=== PATIENT | female | born 1940 | race Caucasian/White ===

== ENCOUNTER → 2017-07-05 | Outpatient (CLI) | payer OTHER, SELFPAY ==
[~2017-07-05] MED LIST: ADULT LOW DOSE81 MG; ADULT LOW DOSE81 MG PO; ADVAIR; ALPRAZOLAM 0.50.5 MG; ALPRAZOLAM 0.50.5 MG PO; AMLODIPINE BESY10 MG PO; ASPIRIN325; ATIVAN0.5 MG PO; BAYER CHEWABLE81 MG PO; CEFUROXIME500 MG PO; CIPROFLOXACIN500 M1 PO; CLARITIN10 MG; CLARITIN10 MG PO; COLACE 100 MG100 MG; COLACE100 MG PO; FERRO-TIME325 MG; FERROUS SULFAT325 MG PO; FISH OIL 1,0001 EAC8 PO; FISHOIL; FISHOIL PO; HYDROCHLOROTHIA25 M1; HYDROCHLOROTHIA25 M1 PO; HYDROCHLOROTHIA25 M2 PO; HYDROCODON-ACE1 EAC8 PO; IRON325 MG PO; LOVENOX; METAMUCIL WAFER1 PKT PO; MIRALAX255 GM; MOM PO; NEXIUM40 MG; NEXIUM40 MG PO; NORCO 5-325 TA1 EACH PO; PREDNISONE 10 M10 MG PO; PREDNISONE50 MG PO; PROAIR HFA8.5 GM; PROZAC; PROZAC 20 MG20 M1 PO; PROZAC 20 MG20 MG PO; ROXICODONE5 M1; SIMVASTATIN40 MG PO; SINGULAIR 10 MG10 M1 PO; SYNTHROID100 MCG; SYNTHROID100 MCG PO; VICODIN 5-5001 EACH; VITAMIN D-32000 UNIT PO; VITAMIN D1000 UNI1 PO; VOLTAREN GEL 1100 G1; XANAX 0.5 MG0.5 M1 PO; XANAX 0.5 MG0.5 MG PO; XOPENEX HFA15 GM INH; ZANTAC 150MG T150 M1 PO; ZOCOR40 MG; ZOCOR40 MG PO; ZOFRAN ODT4 MG PO; ZYRTEC10 M1; ZYRTEC10 MG PO
== END ==
LOC: M.RAD 12:09
DX: M51.37 Other intervertebral disc degeneration, lumbosacral region (principal); M47.896 Other spondylosis, lumbar region; M47.894 Other spondylosis, thoracic region; M16.11 Unilateral primary osteoarthritis, right hip; Z98.890 Other specified postprocedural states

== ENCOUNTER → 2018-07-09 | Outpatient (CLI) | payer OTHER | LOC: M.RAD 14:58 | DX: J98.4 Other disorders of lung (principal); G89.29 Other chronic pain ==

== ENCOUNTER 2020-08-19 09:18 | Observation (INO) | payer OTHER ==
[~2020-08-19] VITALS: Ht 165.1 cm; Wt 106.4 kg
[2020-08-19 09:25] VITALS: BP 193/70
[2020-08-19 10:23] LABS: ABSOLUTE BASOPHILS 0.1 thou/uL (0.0-0.2); ABSOLUTE EOSINOPHILS 0.2 thou/uL (0.0-0.7); ABSOLUTE LYMPHOCYTES 1.8 thou/uL (0.8-5.3); ABSOLUTE MONOCYTES 0.6 thou/uL (0.0-1.2); ABSOLUTE NEUTROPHILS 5.1 thou/uL (1.6-8.1); BASOPHILS 1.1 %; EOSINOPHILS 2.9 %; HEMATOCRIT 31.2 % (37.0-47.0); HEMOGLOBIN 10.2 gm/dL (12.0-15.0); LYMPHOCYTES 22.8 %; MCH 26.6 pg (26.0-34.0); MCHC 32.6 g/dL (28.0-37.0); MCV 81.6 fL (80.0-100.0); MONOCYTES 7.4 %; MPV 6.6 fl. (7.2-11.1); NUCLEATED RBCS 0 /100WBC; PLATELET COUNT* 270 thou/uL (150-400); POLYS 65.8 %; RBC 3.82 mil/uL (4.20-5.00); RDW-CV 14.7 % (10.5-14.5); WBC 7.7 thou/uL (4.0-11.0)
[2020-08-19 10:38] LABS: APTT 26.5 Seconds (25.0-31.3); PROTIME 10.6 Seconds (9.20-11.50)
[2020-08-19 10:41] LABS: ALBUMIN 3.8 g/dL (3.4-5.0); CALCIUM 9.7 mg/dL (8.5-10.1); CREATININE 0.9 mg/dL (0.6-1.3); MAGNESIUM 1.8 mg/dL (1.8-2.4); POTASSIUM 3.9 mmol/L (3.5-5.1); TOTAL BILIRUBIN 0.3 mg/dL (<0.1-1.0); TOTAL PROTEIN 7.6 g/dL (6.4-8.2)
--- NOTE | 2020-08-19 14:21 | EKG ---
[place] [address] ELECTROCARDIOGRAM REPORT Name: JENNIFER YUAN Room: [address] M.R.#: [id number] Admission: 08/19/20 Attend Phys: Vicente Rayo Discharge: Date of : 36 Date of Service: 08/19/20 1022 Report #: [id number] THIS REPORT FOR: //name// [facility] ED Test Date: 2020-08-19 Test Time: 10:22:08 Pat Name: JENNIFER YUAN Department: Room: [facility] Gender: F Hiv Cts Specialist: ABRAHAM : 1940 Requested By: Jason Corbett Order Number: [id number] MD: Contreras Peerz Measurements Intervals [place] Rate: 83 P: 65 NM: 174 QRS: -43 QRSD: 136 T: 99 QT: 407 QTc: 479 Interpretive Statements Sinus rhythm LVH with IVCD, LAD and secondary repol abnrm left axis late transition Compared to ECG 10/14/2016 17:47:45 Sinus tachycardia no longer present Electronically Signed On 08-19-2020 14:21:20 CDT by Contreras Perez [email or web address] <ELECTRONICALLY SIGNED> By: Contreras Perez MD, FAC 08/19/20 1421 1022 1022 Contreras Perez MD, FAC /EPI
[2020-08-19 14:28] VITALS: BP 179/56
[2020-08-19 14:50] VITALS: BP 160/72
--- NOTE | 2020-08-19 16:34 | 2DMMODE ---
[place] [address] 2 D/M-MODE ECHOCARDIOGRAM Name: YUANJENNIFER J Room: [address] [place]#: [id number] Admission: 08/19/20 Attend Phys: Vicente Rayo Discharge: Date of : 36 Date of Service: 08/19/20 1633 Report #: [id number] THIS REPORT FOR: cc: Katie Bowie MD, Jayne Lora MD Blick, David R. MD [facility] ~ APPROVED REPORT Study performed: 08/19/2020 15:49:08 EXAM: Comprehensive 2D, Doppler, and color-flow Echocardiogram Patient Location: In-Patient Room #: [facility] Status: routine BSA: 2.10 HR: 80 bpm BP: 160/72 mmHg Rhythm: NSR Other Information Study Quality: Good Indications Murmur Chest Pain 2D Dimensions IVSd: 13.97 (7-11mm) LVOT Diam: 19.81 (18-24mm) LVDd: 53.07 mm PWd: 10.88 (7-11mm) Ascending Ao: 28.46 (22-36mm) LVDs: 33.39 (25-40mm) Aortic Root: 28.97 mm Volumes Left Atrial Volume (Systole) LA ESV Index: 20.70 mL/m2 Aortic Valve AoV Peak Jean Paul.: 1.91 m/s AO Peak Gr.: 14.63 mmHg LVOT Max P.00 mmHg AO Mean Gr.: 8.32 mmHg LVOT Mean P.12 mmHg LVOT Max V: 1.00 m/s AO V2 VTI: 42.04 cm LVOT Mean V: 0.67 m/s STEVIE (VTI): 1.74 cm2 LVOT V1 VTI: 23.74 [place] [address] 2 D/M-MODE ECHOCARDIOGRAM Name: JENNIFER YUAN Room: [address] Mariah#: [id number] Admission: 08/19/20 Attend Phys: Vicente Rayo Discharge: Date of : 36 Date of Service: 08/19/20 1633 Report #: [id number] [place]: 3.65 m/s2 AI PHT: 358.83 ms Mitral Valve E/A Ratio: 0.66 MV Decel. Time: 254.85 ms MV E Max Jean Paul.: 0.81 m/s MV PHT: 73.91 ms MVA (PHT): 2.98 cm2 TDI E/Lateral E': 9.00 E/Medial E': 8.10 Medial E' Jean Paul.: 0.10 m/s Lateral E' Jean Paul.: 0.09 m/s Pulmonary Valve PV Peak Jean Paul.: 1.15 m/s PV Peak Gr.: 5.25 mmHg Tricuspid Valve RAP Estimate: 5.00 mmHg TR Peak Gr.: 23.43 mmHg RVSP: 28.00 mmHg PA Pressure: 28.00 mmHg Left Ventricle The left ventricle is normal size. There is normal LV segmental wall motion. There is normal left ventricular wall thickness. Left ventricular systolic function is normal. The left ventricular ejection fraction is within the normal range. LVEF is 55-60%. Grade I - abnormal relaxation pattern. Right Ventricle The right ventricle is normal size. The right ventricular systolic function is normal. Atria The left atrium size is normal. The right atrium size is normal. Aortic Valve Aortic valve is calcified. Mild aortic regurgitation. Mild aortic stenosis. Mitral Valve The mitral valve is normal in structure. Trace mitral regurgitation. No evidence [place] [address] 2 D/M-MODE ECHOCARDIOGRAM Name: VENKATESH YUANALEXANDRA [place] Room: [address]#: [id number] Admission: 08/19/20 Attend Phys: Vicente Rayo Discharge: Date of : 36 Date of Service: 08/19/20 1633 Report #: [id number] Tricuspid Valve The tricuspid valve is normal in structure. Trace tricuspid regurgitation. No pulmonary hypertension. Pulmonic Valve The pulmonary valve is normal in structure. There is no pulmonic valvular regurgitation. Great Vessels The aortic root is normal in size. IVC is normal in size and collapses >50% with inspiration. Pericardium There is no pericardial effusion. <Conclusion> LVEF is 55-60%. Mild aortic regurgitation. Mild aortic stenosis. <ELECTRONICALLY SIGNED> By: Contreras Perez MD, FACC 08/19/20 1633 1633 1633 Contreras Perez MD, FACC /INF
[2020-08-19 19:30] VITALS: BP 151/54
[2020-08-19 23:39] VITALS: BP 134/48
[2020-08-20 03:54] VITALS: BP 127/54
[2020-08-20 04:51] LABS: CHOLESTEROL 126 mg/dL (<200); HDL CHOLESTEROL 62 mg/dL (>40); LDL CHOLESTEROL 23 mg/dL (<100); TRIGLYCERIDE 208 mg/dL (<150); VLDL 42 mg/dL (<40)
[2020-08-20 05:03] LABS: SERUM ASSESSMENT CLEAR
[2020-08-20 08:15] LABS: CALCIUM 9.6 mg/dL (8.5-10.1); CREATININE 0.9 mg/dL (0.6-1.3); POTASSIUM 4.1 mmol/L (3.5-5.1)
[2020-08-20 08:18] LABS: MAGNESIUM 2.1 mg/dL (1.8-2.4); PHOSPHORUS* 3.8 mg/dL (2.5-4.9)
[2020-08-20 08:19] VITALS: BP 141/58
[2020-08-20] MEDS ORDERED: PREDNISONE 10 M10 MG PO (08:28)
[2020-08-20] MEDS ORDERED: CEFDINIR300 MG PO (08:28)
--- NOTE | 2020-08-20 10:54 | CON ---
[address] [address] CONSULTATION Name: WILL YUANN [place] Room: [address] [place]#: [id number] Admission: 08/19/20 Attend Phys: Ronaldo Mitchell Discharge: Date of : 36 Report #: [id number] THIS REPORT FOR: cc: Katie Bowie MD, Jayne Lora MD Blick,Contreras Hamilton MD [facility] ~ DATE OF SERVICE: 08/19/2020 CARDIOLOGY CONSULTATION HISTORY OF PRESENT ILLNESS: The patient is an 79-year-old single white female who I was asked to see in the hospital today after she complained of being short of breath. The patient has no previous history of heart disease. However, for the past several weeks, she has had increasing dyspnea on exertion. She has had a cough, but denies any fever. She has occasional ankle edema. She does have occasional chest pressure, although it is nonexertional. There is no radiation of the pain. She notes occasional episodes where heart rate will increase, but she has had no syncope. She came to the hospital today and was admitted for further evaluation and treatment. Apparently, she had a stress test years ago. PAST MEDICAL HISTORY: She has had a previous back surgery, knee surgery, history of breast cancer. She has had cholecystectomy, shoulder surgery, hypertension, diabetes, and hyperlipidemia. MEDICATIONS: On admission, the patient takes hydrochlorothiazide, Zocor, Synthroid, amlodipine, Nexium, hydrocodone, Prozac, aspirin, Xanax, Xopenex inhaler, Singulair inhaler. ALLERGIES: SHE HAS PREVIOUS INTOLERANCE TO MORPHINE, CODEINE, FENOFIBRATE, SULFA DRUGS, CLOPIDOGREL. FAMILY HISTORY: Negative for heart disease. SOCIAL HISTORY: She is , lives in [place]. She smoked a half pack of cigarettes a day, quit in the 1980s. Rarely drinks alcohol. REVIEW OF SYSTEMS: She is overweight, being 5 feet 4 inches, 230 pounds. She apparently had a stroke years ago with facial drooping, never saw a neurologist. She has a history of asthma, uses inhaler. No history of liver disease, GI bleeding, kidney disease. She has a history of breast cancer. No chronic skin condition. No psychiatric illness. She has a history of sleep apnea, uses CPAP. PHYSICAL EXAMINATION: [place] [address] CONSULTATION Name: VENKATESH YUANALEXANDRA [place] [address]#: [id number] Admission: 08/19/20 Attend Phys: Ronaldo Mitchell Discharge: Date of : 36 Report #: [id number] GENERAL: Female, appeared in no acute distress. VITAL SIGNS: She had blood pressure in the Emergency Room of 160/70, pulse 70. She is afebrile. HEENT: She was anicteric. Conjunctivae pink. Mucous membranes are moist. NECK: Veins do not appear distended. Carotid bruits noted. CHEST: Revealed expiratory prolonged phase, is coarse. No wheezes were noted. CARDIOVASCULAR: Regular rate and rhythm, grade 2 systolic ejection murmur. ABDOMEN: Obese. EXTREMITIES: Had trace edema in the feet. There were 2+ dorsalis pedis pulses noted. RADIOLOGICAL DATA: Her ECG on admission showed a sinus rhythm, left axis deviation, left ventricular hypertrophy, repolarization changes, late transition. Workup in the Emergency Room today, the patient had portable chest x-ray, although the results are still pending. LABORATORY DATA: Her lab work in the Emergency Room, she had a sodium 138, potassium 3.9, BUN 15, creatinine 0.9. Liver function studies were normal. Troponins all 0.06. BNP 80. D-dimer 0.24. White blood cell count 7.7, hematocrit 31.2. Her COVID antigen stat test was negative. IMPRESSION AND RECOMMENDATIONS: 1. Bronchitis. 2. Hypertension. The patient is on a diuretic and calcium dontae. 3. Hyperlipidemia. The patient is on a statin drug. 4. Murmur. Recommend echocardiogram. 5. Carotid bruit. Recommend Doppler. 6. History of Cummings's palsy. 7. History of breast cancer. 8. Anemia. No history of bleeding. <ELECTRONICALLY SIGNED> By: Contreras Perez MD, FACC 08/20/20 1054 1535 2059Daketty Perez MD, FACC /nt
[2020-08-20 11:37] VITALS: BP 141/58
== END 2020-08-20 12:07 | disposition home or self-care (01) ==
LOC: M.ERS 09:18 → M.TBA-ER 11:39 → M.2W 14:45
PROVIDERS: Emergency Medicine Emergency Medical Services; Internal Medicine Cardiovascular Disease; ADMIT Internal Medicine; ATTEND Internal Medicine
DX: R07.89 Other chest pain (principal); Z20.822 Contact with and (suspected) exposure to COVID-19; I25.10 Atherosclerotic heart disease of native coronary artery without angina pectoris; J44.9 Chronic obstructive pulmonary disease, unspecified; J45.909 Unspecified asthma, uncomplicated; D64.9 Anemia, unspecified; E11.9 Type 2 diabetes mellitus without complications; E78.5 Hyperlipidemia, unspecified; R01.1 Cardiac murmur, unspecified; F17.210 Nicotine dependence, cigarettes, uncomplicated; Z79.899 Other long term (current) drug therapy

== ENCOUNTER 2021-03-05 11:07 | Emergency (ER) | payer OTHER ==
[~2021-03-05] VITALS: Ht 165.1 cm; Wt 104.3 kg
[~2021-03-05 11:07] MED LIST changes: +CEFDINIR300 MG PO
[2021-03-05] MEDS ORDERED: PROAIR HFA8.5 GM INH (11:21)
[2021-03-05] MEDS ORDERED: FOSAMAX 70 MG T70 MG PO (11:22)
[2021-03-05] MEDS ORDERED: METFORMIN HCL500 M3 PO (11:23)
[2021-03-05 14:02] LABS: ABSOLUTE BASOPHILS 0.1 thou/uL (0.0-0.2); ABSOLUTE EOSINOPHILS 0.1 thou/uL (0.0-0.7); ABSOLUTE LYMPHOCYTES 1.8 thou/uL (0.8-5.3); ABSOLUTE MONOCYTES 0.7 thou/uL (0.0-1.2); ABSOLUTE NEUTROPHILS 7.7 thou/uL (1.6-8.1); BASOPHILS 0.8 %; EOSINOPHILS 0.5 %; HEMOGLOBIN 13.6 gm/dL (12.0-15.0); LYMPHOCYTES 17.8 %; MCH 29.5 pg (26.0-34.0); MCHC 34.1 g/dL (28.0-37.0); MCV 86.6 fL (80.0-100.0); MONOCYTES 6.7 %; MPV 6.8 fl. (7.2-11.1); NUCLEATED RBCS 0 /100WBC; PLATELET COUNT* 296 thou/uL (150-400); POLYS 74.2 %; RBC 4.61 mil/uL (4.20-5.00); RDW-CV 15.6 % (10.5-14.5); WBC 10.3 thou/uL (4.0-11.0)
[2021-03-05 14:28] LABS: CALCIUM 10.6 mg/dL (8.5-10.1)
[2021-03-05 14:29] LABS: ALBUMIN 5.1 g/dL (3.4-5.0)
[2021-03-05 14:40] LABS: TOTAL BILIRUBIN 0.5 mg/dL (<0.1-1.0); TOTAL PROTEIN 8.7 g/dL (6.4-8.2)
[2021-03-05] MEDS ORDERED: XANAX 0.5 MG0.5 MG PO (16:07)
[2021-03-05] MEDS ORDERED: PEPCID20 MG PO (16:07)
[2021-03-05] MEDS ORDERED: ONDANSETRON ODT4 MG PO (16:07)
[2021-03-05 16:20] VITALS: BP 180/76
--- NOTE | 2021-03-05 17:05 | EKG ---
[place] [address] ELECTROCARDIOGRAM REPORT Name: JENNIFER YUAN Room: [facility]#: [id number] Admission: 03/05/21 Attend Phys: Discharge: 03/05/21 Date of : 36 Date of Service: 03/05/21 1126 Report #: [id number] THIS REPORT FOR: //name// [facility] ED Test Date: 2021-03-05 Test Time: 11:26:16 Pat Name: JENNIFER YUAN Department: Room: Gender: F Sausage Stuffer: DAREN : 1940 Requested By: Ahsan Peacock Order Number: [id number] MD: Contreras Perez Measurements Intervals [place] Rate: 82 P: 46 PA: 164 QRS: -47 QRSD: 132 T: 102 QT: 406 QTc: 475 Interpretive Statements Sinus rhythm left axis LVH with IVCD, LAD and secondary repol abnrm Baseline wander in lead(s) V6 Compared to ECG 08/19/2020 10:22:08 No significant changes Electronically Signed On 03-05-2021 17:05:24 CDT by Contreras Perez [email or web address] <ELECTRONICALLY SIGNED> By: Contreras Perez MD, FACC 03/05/21 1705 1126 1126 Contreras Perez MD, FACC /EPI
== END 2021-03-05 16:21 | disposition home or self-care (01) ==
LOC: M.ERS 11:07
PROVIDERS: Physician Assistant
DX: R10.13 Epigastric pain (principal); K25.9 Gastric ulcer, unspecified as acute or chronic, without hemorrhage or perforation; E11.9 Type 2 diabetes mellitus without complications; I10 Essential (primary) hypertension; K21.9 Gastro-esophageal reflux disease without esophagitis; E78.5 Hyperlipidemia, unspecified; Z90.49 Acquired absence of other specified parts of digestive tract; Z76.0 Encounter for issue of repeat prescription; Z79.82 Long term (current) use of aspirin; Z79.899 Other long term (current) drug therapy; Z88.6 Allergy status to analgesic agent; Z88.5 Allergy status to narcotic agent; Z88.2 Allergy status to sulfonamides